=== PATIENT | female | born 1935 | race Two or more races ===

== ENCOUNTER 2020-06-09 20:54 | Inpatient (IN) | payer OTHER ==
[~2020-06-09] VITALS: Ht 152.4 cm; Wt 45.4 kg
== END 2020-06-11 15:31 | disposition left against medical advice (07) | DRG 605 ==
LOC: ER 20:54 → SEC-K 06-10 11:25 → SURH 06-10 11:25 → SEC-K 06-10 18:49 → SURH 06-10 22:43
PROVIDERS: ADMIT Internal Medicine; ATTEND Internal Medicine
PROC: 3E0F7SF Introduction of Other Gas into Respiratory Tract, Via Natural or Artificial Opening (ICD-10-PCS; principal; 2020-06-10)
PROC: BW28ZZZ Computerized Tomography (CT Scan) of Head (ICD-10-PCS; 2020-06-10)
PROC: B24BZZZ Ultrasonography of Heart with Aorta (ICD-10-PCS; 2020-06-10)
PROC: 4A12X4Z Monitoring of Cardiac Electrical Activity, External Approach (ICD-10-PCS; 2020-06-11)
DX: S00.83XA Contusion of other part of head, initial encounter (principal); N39.0 Urinary tract infection, site not specified; I24.9 Acute ischemic heart disease, unspecified; W01.0XXA Fall on same level from slipping, tripping and stumbling without subsequent striking against object, initial encounter; I25.10 Atherosclerotic heart disease of native coronary artery without angina pectoris; Z95.5 Presence of coronary angioplasty implant and graft; Z96.641 Presence of right artificial hip joint; Y93.89 Activity, other specified; Y92.512 Supermarket, store or market as the place of occurrence of the external cause